=== PATIENT | female | born 1990 | race Caucasian/White ===

== ENCOUNTER → 2016-08-04 | Outpatient (CLI) | payer BC, OTHER ==
--- NOTE | 2016-08-04 12:52 | US ---
EXAMINATION: Transvaginal pelvic ultrasound HISTORY: Abnormal findings COMPARISON: 04/26/2016 TECHNIQUE: Grayscale, color Doppler, spectral Doppler images obtained and. FINDINGS: The uterus appears normal in size, contour, and echogenicity without a focal uterine mass. There is an IUD noted within the endometrial stripe. The endometrial stripe thickness measures 8 mm . Minimal free pelvic fluid noted. Note the left and right ovaries are normal in size, contour, and echogenicity demonstrating normal c olor and spectral Doppler flow. There is a small 2.7 cm cyst within the left ovary. IMPRESSION: 1. There is a 2.7 cm simple cyst within the left ovary otherwise unremarkable pelvic ultrasound.
== END ==
LOC: MW.US 09:21
PROVIDERS: ATTEND Nurse Practitioner Women's Health
DX: R93.5 Abnormal findings on diagnostic imaging of other abdominal regions, including retroperitoneum (principal); N83.292 Other ovarian cyst, left side
CPT/HCPCS: 76830; 76830-26

== ENCOUNTER 2018-05-31 10:49 | Emergency (ER) | payer BC ==
[2018-05-31] MEDS ORDERED: Metoclopramide 10 MG/2 ML SDV IV ONE (11:13)
[2018-05-31] MEDS ORDERED: Ketorolac 30 MG/ML SDV IVPUSH ONE (11:13)
[2018-05-31] MEDS ORDERED: Ondansetron 4 MG/2 ML SDV IVPUSH ONE (11:13)
[2018-05-31] MEDS ORDERED: Sodium Chloride 0.9% 1,000 ML IV ONE (11:13)
[2018-05-31] MEDS ORDERED: diphenhydrAMINE 50 MG/ML SDV IVPUSH ONE (11:13)
--- NOTE | 2018-05-31 11:24 | EDM.PDOC ---
ED HPI GENERAL MEDICAL PROBLEM - General Chief Complaint: Headache Stated Complaint: MIGRAINE Time Seen by Provider: 05/31/18 10:50 Source of Information: Reports: Patient History Limitations: Reports: No Limitations - History of Present Illness INITIAL COMMENTS - FREE TEXT/NARRATIVE: HISTORY AND PHYSICAL: History of present illness: Patient is a 28-year-old female who presents to the emergency room today with complaints of a migraine headache. She states that she has a long-standing history of migraine headaches and does follow with Dr. Ferrell. Her next appointment is first week of June 2018. She states that her and Dr. Ferrell have tried multiple prophylactic and abortive medications without any relief. She is frustrated as she has tried multiple [id number] products and not had any relief with this migraine. She does get light and noise sensitivity along with nausea. She denies any chance of Review of systems: As per history of present illness and below otherwise all systems reviewed and negative. Past medical history: As per history of present illness and as reviewed below otherwise noncontributory. Surgical history: As per history of present illness and as reviewed below otherwise noncontributory. Social history: See social history for further information Family history: As per history of present illness and as reviewed below otherwise noncontributory. Physical exam: General: Well-developed and well-nourished 28-year-old female. Alert and oriented. Nontoxic appearing and in no acute distress. HEENT: Atraumatic, normocephalic, pupils equal and reactive bilaterally, negative for conjunctival pallor or scleral icterus, mucous membranes moist, TMs normal bilaterally, throat clear, neck supple, nontender, trachea midline. No drooling or trismus noted. No meningeal signs. No hot potato voice noted. Lungs: Clear to auscultation, breath sounds equal bilaterally, chest nontender. Heart: S1S2, regular rate and rhythm without overt murmur Abdomen: Soft, nondistended, nontender. Negative for masses or hepatosplenomegaly. Negative for costovertebral tenderness. Pelvis: Stable nontender. Genitourinary: Deferred. Rectal: Deferred. Skin: Intact, warm, dry. No lesions or rashes noted. Extremities: Atraumatic, negative for cords or calf pain. Neurovascular unremarkable. Neuro: Awake, alert, oriented. Cranial nerves II through XII unremarkable. Cerebellum unremarkable. Motor and sensory unremarkable throughout. Exam nonfocal. Notes: Patient states that she has had labs, CT of the head and MRI of the brain with Dr. Ferrell. We discussed the option of repeating diagnostics which she declines. We will do IV medications along with fluids. Patient does have improvement with the IV fluids and pain medication Diagnostics: None Therapeutics: IV fluid, Zofran, Toradol, Benadryl and Reglan Prescription: None Impression: Migraine Plan: 1. Please take the remainder of the day to rest in a dark quiet place. 2. You may use [id number] Tylenol and/or Excedrin Migraine as needed. 3. Please follow-up with Mariaelena and/or your primary care provider in the next 1-2 days. Return to the ED as needed and as discussed. Definitive disposition and diagnosis as appropriate pending reevaluation and review of above. Head Pain Score (Numeric/FACES): 7 - Related Data Allergies Allergy/AdvReac Type Severity Reaction Status Date / Time cefaclor [From [facility]] Allergy Swelling Verified 05/31/18 11:15 Sulfa (Sulfonamide Allergy Swelling Verified 05/31/18 11:15 Antibiotics) Home Meds: Home Meds . [No Known Home Meds] 05/31/18 [History] ED ROS GENERAL - Review of Systems Review Of Systems: ROS reveals no pertinent complaints other than HPI. - Physical Exam Exam: See Below (See dictation) Course - Vital Signs Last Recorded V/S: Last Vital Signs Temp 98.9 F 05/31/18 12:47 Pulse 67 05/31/18 12:47 Resp 16 05/31/18 12:47 BP 110/70 05/31/18 12:47 Pulse Ox 99 05/31/18 12:47 - Orders/Labs/Meds Meds: Medications Discontinued Medications Generic Name Dose Route Start Last Admin Trade Name Freq PRN Reason Stop Dose Admin Diphenhydramine HCl 25 mg 05/31/18 11:13 05/31/18 11:44 Benadryl IVPUSH 05/31/18 11:14 25 mg ONETIME ONE Administration Sodium Chloride 1,000 mls @ 999 mls/hr 05/31/18 11:13 05/31/18 11:42 Normal Saline IV 05/31/18 12:13 999 mls/hr STAT ONE Administration Ketorolac Tromethamine 30 mg 05/31/18 11:13 05/31/18 11:42 Toradol IVPUSH 05/31/18 11:14 30 mg ONETIME ONE Administration Metoclopramide HCl 10 mg 05/31/18 11:13 05/31/18 11:47 Reglan IV 05/31/18 11:14 10 mg ONETIME ONE Administration Ondansetron HCl 4 mg 05/31/18 11:13 05/31/18 11:50 Zofran IVPUSH 05/31/18 11:14 4 mg ONETIME ONE Administration Departure - Departure Time of Disposition: 12:04 Disposition: Home, Self-Care 01 Clinical Impression: Migraine - Discharge Information Instructions: Migraine Headache, [id number] Referrals: Angeli Hayes [employer] [employer] [Primary Care Provider] - Forms: ED Department Discharge Additional Instructions: The following information is given to patients seen in the emergency department who are being discharged to home. This information is to outline your options for follow-up care. We provide all patients seen in our emergency department with a follow-up referral. The need for follow-up, as well as the timing and circumstances, are variable depending upon the specifics of your emergency department visit. If you don't have a primary care physician on staff, we will provide you with a referral. We always advise you to contact your personal physician following an emergency department visit to inform them of the circumstance of the visit and for follow-up with them and/or the need for any referrals to a consulting specialist. The emergency department will also refer you to a specialist when appropriate. This referral assures that you have the opportunity for follow-up care with a specialist. All of these measure are taken in an effort to provide you with optimal care, which includes your follow-up. Under all circumstances we always encourage you to contact your private physician who remains a resource for coordinating your care. When calling for follow-up care, please make the office aware that this follow-up is from your recent emergency room visit. If for any reason you are refused follow-up, please contact the [facility] Emergency Department at and asked to speak to the emergency department charge nurse. [facility] Primary Care [address] [place] [id number] [facility] [address] [place] [id number] 1. Please take the remainder of the day to rest in a dark quiet place. 2. You may use [id number] Tylenol and/or Excedrin Migraine as needed. 3. Please follow-up with Mariaelena and/or your primary care provider in the next 1-2 days. Return to the ED as needed and as discussed.
== END 2018-05-31 12:47 | disposition home or self-care (01) ==
LOC: MW.ED 10:49
DX: G43.909 Migraine, unspecified, not intractable, without status migrainosus (principal); Z88.8 Allergy status to other drugs, medicaments and biological substances; Z88.2 Allergy status to sulfonamides
CPT/HCPCS: 96361; 96374; 96375; 99283; J1200; J1885; J2405; J2765; J7040

== ENCOUNTER 2020-04-06 20:44 | Emergency (ER) | payer BC ==
[2020-04-06] MEDS ORDERED: Sodium Chloride 0.9% 2.5 ML Syringe FLUSH PRN (20:51)
[2020-04-06] MEDS ORDERED: Sodium Chloride 0.9% 10 ML Syringe FLUSH PRN (20:51)
--- NOTE | 2020-04-06 20:54 | EDM.PDOC ---
ED HPI GENERAL MEDICAL PROBLEM - General Chief Complaint: Chest Pain Stated Complaint: CHEST PAIN Time Seen by Provider: 04/06/20 20:52 Source of Information: Reports: Patient History Limitations: Reports: No Limitations - History of Present Illness INITIAL COMMENTS - FREE TEXT/NARRATIVE: 30-year-old female presents with chest pain. Chest pain started yesterday around 5 PM, localized to the right upper chest, described as dull aching sensation that is constant, pleuritic, nonexertional, nonreproducible, rated 2/10. 2 hours prior to onset of her chest pain she was at the gym doing lifts and lunges, lower body workout. But the day before she was doing chest work and presses. She admits to feeling lightheaded and palpitations. She denies fever, chills, nausea, vomiting, diarrhea, sweats, abdominal pain. She denies recent long travels or trauma or recent surgery, she does have an IUD in place. She has a stress test scheduled with Dr. Disla on Monday at 9 AM. She has been wearing a Zio patch over the last 2 weeks. ROS: A 10-point review of systems, other than pertinent positives and negatives as stated per HPI, is otherwise negative Past medical history: No additional pertinent history Past Surgical history: No additional pertinent history Social history: No additional pertinent history Family history: No additional pertinent history PHYSICAL EXAM General: AOx4, GCS = 15, No distress HEENT: dry mucous membrane Neck: supple, no meningismus, no Kernig or Brudzinski Cardiac: S1S2 RRR Respiratory: CTAB, no crackles or rales, no wheezing Abdomen: Soft, nontender, no rebound or guarding, nondistended, no pulsatile mass. Back: nontender Musculoskeletal: NVI distally, no deformity Neuro: No focal deficits, CN 2 - 12 WNL. Right Upper Chest Pain Score (Numeric/FACES): 2 - Related Data Allergies Allergy/AdvReac Type Severity Reaction Status Date / Time cefaclor [From [facility]] Allergy Swelling Verified 04/06/20 20:55 Sulfa (Sulfonamide Allergy Swelling Verified 04/06/20 20:55 Antibiotics) Home Meds: Home Meds Promethazine [Phenergan] 12.5 mg PO ASDIRECTED PRN 04/06/20 [History] Rizatriptan Benzoate [Rizatriptan] 10 mg PO ASDIRECTED PRN 04/06/20 [History] Past Medical History Cardiovascular History: Reports: None Respiratory History: Reports: None Gastrointestinal History: Reports: None Genitourinary History: Reports: None [employer] History: Reports: Musculoskeletal History: Reports: None Neurological History: Reports: Migraines Psychiatric History: Reports: None Endocrine/Metabolic History: Reports: None Hematologic History: Reports: None Immunologic History: Reports: None Oncologic (Cancer) History: Reports: None Dermatologic History: Reports: None - Infectious Disease History Infectious Disease History: Reports: Chicken Pox - Past Surgical History Head Surgeries/Procedures: Reports: None HEENT Surgical History: Reports: Myringotomy w Tube(s) GI Surgical History: Reports: None Social & Family History - Family History Family Medical History: No Pertinent Family History - Caffeine Use Caffeine Use: Reports: Energy Drinks ED ROS GENERAL - Review of Systems Review Of Systems: See Below (see dictation) ED EXAM, GENERAL - Physical Exam Exam: See Below (see dictation) #1 Interpretation EKG Interpretation Comments: Heart rate = 97 bpm, normal sinus rhythm, normal QRS interval, no STEMI. EKG and rhythm strip interpreted by me at 2046 Course - Vital Signs Last Recorded V/S: Last Vital Signs Temp 96.3 F L 04/06/20 20:51 Pulse 98 04/06/20 20:51 Resp 18 04/06/20 20:51 BP 97/56 L 04/06/20 20:51 Pulse Ox 100 04/06/20 20:51 - Orders/Labs/Meds Orders: Active Orders 24 hr Category Date Time Status Cardiac Monitoring [RC] . DIRECTED Care 04/06/20 20:51 Active EKG Documentation Completion [RC] STAT Care 04/06/20 20:51 Active Pulse Oximetry [RC] ASDIRECTED Care 04/06/20 20:51 Active Chest 1V Frontal [CR] Stat Exams 11/23/20 20:51 Taken COMPREHENSIVE METABOLIC PN,CMP [CHEM] Stat Lab 04/06/20 21:09 Received HCG QUALITATIVE,SERUM [CHEM] Stat Lab 04/06/20 21:09 Received TROPONIN I [CHEM] Stat Lab 04/06/20 21:09 Received Sodium Chloride 0.9% [Saline Flush] Med 04/06/20 20:51 Active 10 ml FLUSH ASDIRECTED PRN Sodium Chloride 0.9% [Saline Flush] Med 04/06/20 20:51 Active 2.5 ml FLUSH ASDIRECTED PRN Saline Lock Insert [OM.PC] Stat Oth 04/06/20 20:51 Ordered Medication Orders Sodium Chloride (Saline Flush) 10 ml FLUSH ASDIRECTED PRN PRN Reason: Keep Vein Open Sodium Chloride (Saline Flush) 2.5 ml FLUSH ASDIRECTED PRN PRN Reason: Keep Vein Open Labs: Laboratory Tests 04/06/20 Range/Units 21:09 WBC 7.07 (4.0-11.0) K/uL RBC 4.42 (4.30-5.90) M/uL Hgb 13.3 (12.0-16.0) g/dL Hct 41.4 (36.0-46.0) % MCV 93.7 (80.0-98.0) fL MCH 30.1 (27.0-32.0) pg MCHC 32.1 (31.0-37.0) g/dL RDW Std Deviation 42.1 (28.0-62.0) fl RDW Coeff of Murphy 12 (11.0-15.0) % Plt Count 380 (150-400) K/uL MPV 9.80 (7.40-12.00) fL Neut % (Auto) 52.0 (48.0-80.0) % Lymph % (Auto) 36.2 (16.0-40.0) % Canyon % (Auto) 7.8 (0.0-15.0) % Eos % (Auto) 3.4 (0.0-7.0) % Baso % (Auto) 0.6 (0.0-1.5) % Neut # (Auto) 3.7 (1.4-5.7) K/uL Lymph # (Auto) 2.6 H (0.6-2.4) K/uL Canyon # (Auto) 0.6 (0.0-0.8) K/uL Eos # (Auto) 0.2 (0.0-0.7) K/uL Baso # (Auto) 0.0 (0.0-0.1) K/uL Nucleated RBC % 0.0 /100WBC Nucleated RBCs # 0 K/uL Meds: Medications Generic Name Dose Route Start Last Admin Trade Name Freq PRN Reason Stop Dose Admin Sodium Chloride 10 ml 04/06/20 20:51 Saline Flush FLUSH ASDIRECTED PRN Keep Vein Open Sodium Chloride 2.5 ml 04/06/20 20:51 Saline Flush FLUSH ASDIRECTED PRN Keep Vein Open - Re-Assessments/Exams Free Text/Narrative Re-Assessment/Exam: 04/06/20 21:56 After observation in the ER, the patient improved and is currently stable for discharge. I performed a repeat exam and did not appreciate new abnormal findings. Patient exhibits normal vital signs and has a normal gait on road test. I advised the patient to return to the ER for reevaluation if symptoms worsened, including fever, worsening pain, or any other worrisome symptoms. I instructed the patient to follow up with their PCP within 2-3 days. MEDICAL DECISION MAKING: I reviewed the patients past medical records, lab and radiographic findings. I discussed the case with the patient. My differential diagnosis includes but is not limited to: ACS, pneumonia, PE, pneumothorax, chest wall pain, pulmonary edema/CHF, aortic dissection, pericarditis, intra- abdominal process. Given the EKG and clinical history, I do not suspect pericarditis. There is no evidence of pneumothorax or infiltrate on CXR. Aortic dissection was considered, however the presenting symptoms were uncharacteristic of aortic dissection. Chest X-ray shows no evidence of mediastinal widening and there are strong, equal and symmetric pulses. Given the current presentation, I do not suspect aortic dissection. The patients history, chest X-ray, and exam do not suggest pulmonary edema/congestive heart failure. Pulmonary embolism was felt unlikely after a negative d-dimer. Intra-abdominal pathology felt unlikely given benign/non tender abdominal exam. Acute coronary syndrome was considered but there are negative tropoin for chest pain that started > 6hours ago. She had no acute ischemic EKG changes, and the patient has a low HEART score. Based on this, I feel that there is low risk for short-term major adverse cardiac event. I have discussed this with the patient and reviewed options for inpatient and outpatient management. The patient verbalizes an excellent understanding of the above including presence of small risk of short-term major adverse cardiac event even in the setting of low HEART score, negative cardiac biomarker, and compendium of elements of this presentation. The patient is already scheduled for an outpatient stress test in [address] Doe. Departure - Departure Time of Disposition: 21:57 Disposition: Home, Self-Care 01 Condition: Good Clinical Impression: Chest pain - Discharge Information *PRESCRIPTION DRUG MONITORING PROGRAM REVIEWED*: Not Applicable *COPY OF PRESCRIPTION DRUG MONITORING REPORT IN PATIENT DILLAN: Not Applicable Instructions: Nonspecific Chest Pain, Adult, [id number] Referrals: Ean Gordon MD [Physician] - 04/08/20 Forms: ED Department Discharge Additional Instructions: The need for follow-up, as well as the timing and circumstances, are variable depending upon the specifics of your emergency department visit. If you don't have a primary care physician on staff, we will provide you with a referral. We always advise you to contact your personal physician following an emergency department visit to inform them of the circumstance of the visit and for follow-up with them and/or the need for any referrals to a consulting specialist. The emergency department will also refer you to a specialist when appropriate. This referral assures that you have the opportunity for follow-up care with a specialist. All of these measure are taken in an effort to provide you with optimal care, which includes your follow-up. Under all circumstances we always encourage you to contact your private physician who remains a resource for coordinating your care. When calling for follow-up care, please make the office aware that this follow-up is from your recent emergency room visit. If for any reason you are refused follow-up, please contact the [facility] Emergency Department at and asked to speak to the emergency department charge nurse. If you do not have a primary care doctor, please follow up with the clinics below within 3-5 days. [facility] - Primary Care [address] [place] [address] [facility] [address] [place] [address] Sepsis Event Note (ED) - Focused Exam Vital Signs: Vital Signs Temp Pulse Resp BP Pulse Ox 04/06/20 20:51 96.3 F L 98 18 97/56 L 100 - My Orders Last 24 Hours: My Active Orders 04/06/20 20:51 Cardiac Monitoring [RC] . DIRECTED EKG Documentation Completion [RC] STAT Pulse Oximetry [RC] ASDIRECTED Chest 1V Frontal [CR] Stat Sodium Chloride 0.9% [Saline Flush] 10 ml FLUSH ASDIRECTED PRN Sodium Chloride 0.9% [Saline Flush] 2.5 ml FLUSH ASDIRECTED PRN Saline Lock Insert [OM.PC] Stat 04/06/20 21:09 COMPREHENSIVE METABOLIC PN,CMP [CHEM] Stat HCG QUALITATIVE,SERUM [CHEM] Stat TROPONIN I [CHEM] Stat - Assessment/Plan Last 24 Hours: My Active Orders 04/06/20 20:51 Cardiac Monitoring [RC] . DIRECTED EKG Documentation Completion [RC] STAT Pulse Oximetry [RC] ASDIRECTED Chest 1V Frontal [CR] Stat Sodium Chloride 0.9% [Saline Flush] 10 ml FLUSH ASDIRECTED PRN Sodium Chloride 0.9% [Saline Flush] 2.5 ml FLUSH ASDIRECTED PRN Saline Lock Insert [OM.PC] Stat 04/06/20 21:09 COMPREHENSIVE METABOLIC PN,CMP [CHEM] Stat HCG QUALITATIVE,SERUM [CHEM] Stat TROPONIN I [CHEM] Stat
--- NOTE | 2020-04-06 21:29 | CR ---
Indication: Chest pain. Technique: AP portable view of the chest. Comparison: No prior studies are available for comparison Findings: The heart is normal size. The lungs are clear. No infiltrate, pleural effusion, or pneumothorax is identified. Impression: No acute cardiopulmonary process Dictated by Stacey Montes MD @ Apr 06 2020 9:27PM Signed by Dr. Stacey Montes @ Apr 06 2020 9:27PM
[2020-04-06 21:39] LABS: BLOOD UREA NITROGEN,BUN 19 mg/dL (7.0-18.0); CARBON DIOXIDE,CO2 26.1 mmol/L (21.0-32.0); CHLORIDE,CL 106 mmol/L (98-107); GLUCOSE RANDOM 93 mg/dL (74-106); POTASSIUM,K 3.9 mmol/L (3.5-5.1); SODIUM,NA 143 mmol/L (136-145)
== END 2020-04-06 22:05 | disposition home or self-care (01) ==
LOC: MW.ED 20:44
DX: R07.81 Pleurodynia (principal); Z88.1 Allergy status to other antibiotic agents; Z88.2 Allergy status to sulfonamides
CPT/HCPCS: 36415; 71045; 71045-26; 80053; 84484; 84703; 85025; 85379; 93005; 93010; 99283; 99285-25